=== PATIENT | female | born 1970 | race Caucasian/White ===

== ENCOUNTER 2017-01-07 00:11 | Emergency (ER) | payer MEDICAID ==
[~2017-01-07 00:11] MED LIST: CLEOCIN HCL300 M1 PO; IBUPROFEN800 M1 PO; NO HOME MEDICATION XX; SULF-PRED 10-0.25 ML OP
[2017-01-07] MEDS ORDERED: TRAMADOL HCL50 M2 PO (01:03)
== END 2017-01-07 01:21 ==
LOC: EDMED 00:11
DX: J10.1 Influenza due to other identified influenza virus with other respiratory manifestations (principal)